=== PATIENT | female | born 1970 | race Caucasian/White ===

== ENCOUNTER 2020-08-25 08:52 | Emergency (ER) | payer OTHER ==
[~2020-08-25] VITALS: Ht 170.2 cm; Wt 74.8 kg
[2020-08-25 09:03] VITALS: Ht 170.2 cm; Wt 74.8 kg
[2020-08-25] MEDS ORDERED: NAPROSYN500 MG PO ×2 (10:34→12:17)
[2020-08-25 11:31] VITALS: BP 120/80
== END 2020-08-25 11:31 | disposition home or self-care (01) ==
LOC: ED 08:52
DX: S06.0X0A Concussion without loss of consciousness, initial encounter (principal); W22.8XXA Striking against or struck by other objects, initial encounter; Y93.89 Activity, other specified; Y92.89 Other specified places as the place of occurrence of the external cause; Y99.8 Other external cause status